=== PATIENT | male | born 1965 | race Caucasian/White ===

== ENCOUNTER 2016-12-07 10:04 | Inpatient (IN) | payer OTHER, MEDICAID ==
[2016-12-07] MEDS ORDERED: ceFAZolin 2 GM in Premix Bag 1 BAG IV ONE (10:33)
[2016-12-07] MEDS ORDERED: Sodium Chloride 0.9% 1,000 ML IV ONE (10:44)
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
[2016-12-07] MEDS ORDERED: Diphtheria/Tetanus Toxoids,Adult (Td) 0.5 ML SDV IM ONE (12:19)
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
[2016-12-07] MEDS: Lactated Ringers 1,000 ML IV SCH ×2 (12:35→23:58)
[2016-12-07] MEDS ORDERED: Lidocaine 2% 100 MG/5 ML Syringe IVPUSH ONE (14:00)
[2016-12-07] MEDS ORDERED: Dexamethasone 4 MG/ML 5 ML MDV IVPUSH ONE (14:00)
[2016-12-07] MEDS ORDERED: fentaNYL 100 MCG/2 ML SDV IV ONE (14:00)
[2016-12-07] MEDS ORDERED: Hetastarch in NS 500 ML IV ONE (14:00)
[2016-12-07] MEDS ORDERED: Rocuronium 100 MG/10 ML MDV IV ONE (14:00)
[2016-12-07] MEDS ORDERED: Propofol 200 MG/20 ML SDV IV ONE (14:00)
[2016-12-07] MEDS ORDERED: Ondansetron 4 MG/2 ML SDV IVPUSH ONE (14:00)
[2016-12-07] MEDS ORDERED: Midazolam 1 MG/ML 2 ML SDV IV ONE (14:00)
[2016-12-07] MEDS ORDERED: Phenylephrine 1% 10 MG/ML SDV IV ONE (14:00)
[2016-12-07] MEDS ORDERED: Neostigmine Methylsulfate 1 MG/ML 5 ML Syringe IV ONE (14:00)
[2016-12-07] MEDS ORDERED: HYDROmorphone 2 MG/ML SDV IV ONE (14:00)
[2016-12-07] MEDS ORDERED: ceFAZolin 1 GM Vial ONE (14:25)
[2016-12-07] MEDS ORDERED: Docusate Sodium 100 MG Cap PO PRN (15:08)
[2016-12-07] MEDS ORDERED: Lactated Ringers 1,000 ML IV SCH (15:15)
[2016-12-07] MEDS: Ketorolac 30 MG/ML SDV IVPUSH SCH ×2 (16:24→22:23)
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
[2016-12-07] MEDS ORDERED: LORazepam 2 MG/ML MDV IVPUSH PRN (18:09)
[2016-12-07] MEDS ORDERED: traZODone 100 MG Tab PO PRN (18:11)
[2016-12-07] MEDS: ceFAZolin 1 GM in Sodium Chloride 0.9% 50 ML IV SCH (19:50)
[2016-12-07] MEDS: traZODone 50 MG Tab PO PRN (23:07)
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
[2016-12-08] MEDS: Ketorolac 30 MG/ML SDV IVPUSH SCH ×4 (03:48→22:14)
[2016-12-08] MEDS: ceFAZolin 1 GM in Sodium Chloride 0.9% 50 ML IV SCH ×3 (03:52→19:34)
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
[2016-12-08] MEDS: Venlafaxine 150 MG Cap.ER PO SCH (08:24)
[2016-12-08] MEDS: Acetaminophen/HYDROcodone 325-5 MG Tab PO PRN (08:24)
[2016-12-08] MEDS: Lactated Ringers 1,000 ML IV SCH (08:27)
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
--- NOTE | 2016-12-08 12:24 | PN ---
DATE SEEN: 12/08/2016 PROBLEM: Compound fracture of the left forearm with irrigation and debridement. SUBJECTIVE: The patient is asymptomatic today. He denies any chest pain, shortness of breath, difficulty breathing or abdominal pain. OBJECTIVE: VITAL SIGNS: Vital signs are stable. GENERAL: He is alert and oriented. HEART: Normal sinus rhythm. LUNGS: Mild wheezing bilaterally and is chronic smoker. ABDOMEN: No pain, guarding, rigidity, or rebound. Good bowel sounds. EXTREMITIES: Examination of the left upper extremities reveals it to be hanging from an IV pole with the elbow bent approximately at 75 degrees and resting on the bed. The arm was supported by a stockinette from the IV pole. NEUROVASCULAR: Integrity is intact. ASSESSMENT: As above. Doing well. PLAN: We will take the patient back tomorrow with the expectations that the swelling will be down and we can close this laceration the rest of the way without causing any compartment syndrome. The patient also was updated on this program and wishes to proceed. Our expectations after surgery is to keep him hospitalized till Monday and then if everything looks fine, we will put him in a short-arm cast and discharge him. 1. Continue antibiotics. 2. Repeat hemoglobin and hematocrit. Initially it was 13+ and now it is only about 9. 3. Repeat basic metabolic profile. /[id number] SWETHA/PADMINI
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
[2016-12-09] MEDS: ceFAZolin 1 GM in Sodium Chloride 0.9% 50 ML IV SCH ×3 (04:55→20:49)
[2016-12-09] MEDS: Venlafaxine 150 MG Cap.ER PO SCH (09:16)
[2016-12-09] MEDS ORDERED: ePHEDrine 50 MG/ML SDV IV ONE (12:30)
[2016-12-09] MEDS ORDERED: Lactated Ringers 1,000 ML IV ONE (12:30)
[2016-12-09] MEDS ORDERED: Midazolam 1 MG/ML 2 ML SDV IV ONE (12:30)
[2016-12-09] MEDS ORDERED: Ondansetron 4 MG/2 ML SDV IVPUSH ONE (12:30)
[2016-12-09] MEDS ORDERED: Morphine 10 MG/ML Syringe IVPUSH ONE (12:30)
[2016-12-09] MEDS ORDERED: Propofol 200 MG/20 ML SDV IV ONE (12:30)
[2016-12-09] MEDS ORDERED: Lidocaine 2% 100 MG/5 ML Syringe IVPUSH ONE (12:30)
[2016-12-09] MEDS ORDERED: ceFAZolin 1 GM Vial ONE (13:04)
[2016-12-09] MEDS ORDERED: Docusate Sodium 100 MG Cap PO PRN (13:51)
[2016-12-09] MEDS ORDERED: Acetaminophen/HYDROcodone 325-5 MG Tab PO PRN (13:51)
[2016-12-09] MEDS ORDERED: Lactated Ringers 1,000 ML IV SCH (14:00)
[2016-12-09] MEDS: Ketorolac 30 MG/ML SDV IVPUSH SCH ×2 (14:44→21:08)
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
--- NOTE | 2016-12-09 19:56 | OR ---
DATE OF OPERATION: 12/09/2016 SURGEON: Ruben Perez MD PREOPERATIVE DIAGNOSIS: Compound fracture, left forearm with open laceration. POSTOPERATIVE DIAGNOSIS: Compound fracture, left forearm with open laceration. PROCEDURE PERFORMED: Irrigation, debridement, and inspection with laceration final closure. DESCRIPTION OF PROCEDURE: The patient was taken to the operating room, placed on the operating room table in supine position. A general anesthetic was then administered. The sugar-tong splint was then removed and dressings removed. Sterile ChloraPrep was then performed, and then sterile draping procedure carried out. No tourniquet was utilized during the procedure. The patient's tissue was viable. Minimal debridement was noted, just a little along the skin edges. The patient then had 2-0 nylon used for approximation of the skin, and then the superficial, then we brought the edges together very nicely once they had been opposed with 2-0 nylon. The patient had the area undermined both radially and ulnarly prior to closure so we could get less tension on the skin closure and thorough irrigation with approximately 500 mL of sterile normal saline with Ancef was utilized. Postoperatively, we applied OpSite, then used soft roll with re-application of the sugar tong splint and Johnny wraps. Postoperatively, the patient will be taken back to his room, will continue elevation and monitoring neurovascular integrity. Antibiotics IV will be continued for this gentleman. We will continue to observe for any sign of infection or compartment syndrome. This patient may be allowed to go home on Monday barring any complications. /[id number] SWETHA/PADMINI
[2016-12-09] MEDS: traZODone 50 MG Tab PO PRN (20:59)
[2016-12-10] MEDS: Ketorolac 30 MG/ML SDV IVPUSH SCH ×4 (02:59→19:46)
[2016-12-10] MEDS: ceFAZolin 1 GM in Sodium Chloride 0.9% 50 ML IV SCH ×3 (03:01→19:46)
[2016-12-10] MEDS: Multivitamin Tab PO SCH (08:31)
[2016-12-10] MEDS: Venlafaxine 150 MG Cap.ER PO SCH (08:32)
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
[2016-12-10] MEDS ORDERED: Sodium Chloride 0.9% 10 ML SDV FLUSH SCH (20:30)
[2016-12-11] MEDS: ceFAZolin 1 GM in Sodium Chloride 0.9% 50 ML IV SCH ×3 (03:38→20:15)
[2016-12-11] MEDS ORDERED: Sodium Chloride 0.9% 250 ML IV SCH (04:00)
[2016-12-11] MEDS: Acetaminophen/HYDROcodone 325-5 MG Tab PO PRN ×2 (07:54→20:24)
[2016-12-11] MEDS: Multivitamin Tab PO SCH (08:00)
[2016-12-11] MEDS: Venlafaxine 150 MG Cap.ER PO SCH (08:00)
[2016-12-12] MEDS: ceFAZolin 1 GM in Sodium Chloride 0.9% 50 ML IV SCH ×2 (03:34→12:29)
[2016-12-12] MEDS: Venlafaxine 150 MG Cap.ER PO SCH (08:28)
[2016-12-12] MEDS: Multivitamin Tab PO SCH (08:28)
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
--- NOTE | 2016-12-12 15:31 | PN ---
DATE SEEN: 12/12/2016 PROBLEM: Compound fracture, left forearm with a minimally displaced fracture of distal ulna. SUBJECTIVE: The patient is asymptomatic today. OBJECTIVE: Vital signs are stable. His neurovascular integrity is intact. His incision is healing well. There is no evidence of skin necrosis. There is no evidence of infection. PLAN: The patient will be discharged today with a return appointment to see Dr. Lua on and myself next Monday. If there is any sign of infection, redness, pain, or temperature, he is going to return to the emergency room. The patient has a new long-arm cast in place today and prescription for Keflex 500 p.o. q.i.d. is given, along with a prescription for hydrocodone 5/325 mg, #20. It should be noted he has tramadol 50 mg that he takes one every 6 hours at home. This patient did have what appeared to be about a 4 to 5 L blood loss, and his hemoglobin dropped initially about 5 units, after he was admitted, and then came up a little bit. It went from 13 to 8.8 and then up to 9.7, now today it is 8.9. This could be hemodilution from his recent surgery on , but we were also concerned about a traumatic hemolytic anemia. This problem was discussed with Dr. Lua today. We are going to do an iron level and transferrin. We will check his creatine kinase again and also do a peripheral blood smear. The patient is advised on discharge, as far as cast care and neurovascular precautions, and should he have any other problems, redness, pain, temperature, etc., he will get back to see us in the emergency room. I have return appointment for him next Monday, at which time we will window the cast and remove some of the sutures and inspect the incision. /[id number] SWETHA/PADMINI
[2016-12-12 16:05] VITALS: BP 120/77
--- NOTE | 2016-12-13 02:21 | DISCH ---
DISCHARGE DATE: 12/12/2016 PROBLEM: Compound fracture of left forearm. HISTORY OF THE HOSPITAL STAY: This patient was admitted because of the compound fracture of the left distal forearm. He had an open incision approximately 9 cm long and about 4 to 5 cm wide. He did have a minimally displaced distal ulnar fracture in good position and alignment. The patient was taken to the operating room, irrigated and debrided, and then closed partially. Two days later, he returned to the emergency room for a repeat inspection and definitive closure. At the time of discharge, his vital signs are stable. Incision is healing well. He is resting comfortably in new long-arm cast. The patient has been given precautions for cast care as well as neurovascular precautions. If any sign of infection, redness, pain or temperature, he will return to see us immediately. COMPLICATIONS: None. DIET: Regular. CONSULTATIONS: 1. Dr. Ruben Webster. 2. Dr. Lua. The patient did have a hemoglobin of 13.8 approximately and then dropped down to about 8.7, 24 hours later. The patient's hemoglobin then went up and went down again at about to his approximately 8.8. This was discussed with Dr. Lua and we felt that some of his low hemoglobin was because of dilution. He also may have some underlying conditions that we are going to rule out as far as traumatic hemolytic anemia. At no time did he demonstrate any chest pain, shortness of breath, abdominal pain, or back pain. The surgical blood loss was approximately 20 mL for both surgeries total. RETURN APPOINTMENT: 1. The patient will return to see Dr. Lua next . 2. The patient will return to see me in 1 week for doing of the cast, dressing change, and possible removal of some sutures. MEDICATIONS: 1. Resume preadmission medication, usual dosage and frequency. 2. Hydrocodone 5/325, #20. The patient has tramadol at home, so I felt that no more than 20 was needed. Complications; as stated previously was the postop decrease in hemoglobin, which we are currently evaluating with a repeat iron, repeat serum creatine kinase, peripheral blood smear, vitamin B12 level, transferrin, and iron level. Activities of daily living: The patient should refrain from doing any driving and will not do any heavy lifting, pushing, or pulling. Showering precautions and rules are explained to the patient. /[id number] AMMY
[2016-12-13 20:34] LABS: UNSATURATED IRON BIND CAPACITY 180 ug/dL (112-347)
--- NOTE | 2016-12-29 08:36 | PN ---
DATE OF SERVICE: 12/11/2016 Please note that on 12/11/2016, I did not physically see Mr. Yg French. /[id number] DERRICK/PADMINI
== END 2016-12-12 16:20 | disposition home or self-care (01) | DRG 579 ==
LOC: FB.ED 10:04 → FB.SDS 11:20 → FB.MS 15:08
PROVIDERS: ADMIT Orthopaedic Surgery; ATTEND Orthopaedic Surgery
PROC: 0JDH0ZZ Extraction of Left Lower Arm Subcutaneous Tissue and Fascia, Open Approach (ICD-10-PCS; principal; 2016-12-07)
PROC: 0KQB0ZZ Repair Left Lower Arm and Wrist Muscle, Open Approach (ICD-10-PCS; 2016-12-07)
PROC: 0JQH0ZZ Repair Left Lower Arm Subcutaneous Tissue and Fascia, Open Approach (ICD-10-PCS; 2016-12-07)
PROC: 2W3DX1Z Immobilization of Left Lower Arm using Splint (ICD-10-PCS; 2016-12-07)
PROC: 0JDH0ZZ Extraction of Left Lower Arm Subcutaneous Tissue and Fascia, Open Approach (ICD-10-PCS; 2016-12-09)
PROC: 0XQF0ZZ Repair Left Lower Arm, Open Approach (ICD-10-PCS; 2016-12-09)
DX: S51.812A Laceration without foreign body of left forearm, initial encounter (principal); S52.25 Comminuted fracture of shaft of ulna; V58.0XXA Driver of pick-up truck or van injured in noncollision transport accident in nontraffic accident, initial encounter; T79.6XXA Traumatic ischemia of muscle, initial encounter; T68.XXXA Hypothermia, initial encounter; D50.9 Iron deficiency anemia, unspecified; F32.9 Major depressive disorder, single episode, unspecified; F41.9 Anxiety disorder, unspecified; F41.0 Panic disorder [episodic paroxysmal anxiety]; M54.9 Dorsalgia, unspecified; G89.29 Other chronic pain; F17.210 Nicotine dependence, cigarettes, uncomplicated; Z23 Encounter for immunization; Z91.5 Personal history of self-harm; F10.21 Alcohol dependence, in remission; Z87.898 Personal history of other specified conditions; Y90.0 Blood alcohol level of less than 20 mg/100 ml
CPT/HCPCS: 36415; 70450; 71020; 72125; 73060-LT; 73090-LT; 73120-LT; 80048; 80053; 80076; 80305; 81001; 82270; 82550; 82607; 82728; 83540; 83550; 84484; 85014; 85018; 85025; 85045; 85384; 85610; 85730; 88104; 90714; 94150; 99285; A4217; A9270-GY; G0480; J0690; J1100; J1170; J1885; J2060; J2250; J2270; J2370; J2405; J2704; J3010; J7040; J7050; J7120

== ENCOUNTER 2017-02-20 22:11 | Emergency (ER) | payer MEDICAID, OTHER ==
[2017-02-20] MEDS ORDERED: LORazepam 2 MG/ML MDV IM ONE (22:16)
[2017-02-20] MEDS ORDERED: Thiamine 100 MG Tab PO ONE (22:46)
[2017-02-20] MEDS ORDERED: Sodium Chloride 0.9% 1,000 ML IV ONE (22:58)
[2017-02-20] MEDS ORDERED: Folic Acid 1 MG Tab PO ONE (22:58)
[2017-02-20] MEDS ORDERED: Albuterol/Ipratropium 3.0-0.5 MG/3 ML Neb Soln NEB ONE (22:59)
[2017-02-20 23:53] LABS: ACETAMINOPHEN < 10 ug/mL (10-30)
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
[2017-02-21] MEDS ORDERED: Sodium Chloride 0.9% 1,000 ML IV ONE (00:38)
[2017-02-21] MEDS ORDERED: diphenhydrAMINE 50 MG/ML SDV IVPUSH ONE (01:08)
[2017-02-21] MEDS ORDERED: LORazepam 2 MG/ML MDV IVPUSH ONE (03:05)
[2017-02-21 07:08] VITALS: BP 198/98
== END 2017-02-21 07:13 ==
LOC: FB.ED 22:11
DX: R45.851 Suicidal ideations (principal); F41.9 Anxiety disorder, unspecified; F17.210 Nicotine dependence, cigarettes, uncomplicated; Z79.899 Other long term (current) drug therapy
CPT/HCPCS: 36415; 80048; 80076; 80305; 81001; 84443; 85025; 94664; 96361; 96374; 96375; 99285; A9270; G0480; J1200; J2060; J7040; J7620

== ENCOUNTER 2017-08-02 10:59 | Emergency (ER) | payer BC, MEDICAID ==
[2017-08-02 11:14] VITALS: BP 129/79
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
== END 2017-08-02 11:50 ==
LOC: FB.ED 10:59
DX: S00.81XA Abrasion of other part of head, initial encounter (principal); F10.129 Alcohol abuse with intoxication, unspecified; Z91.19 Patient's noncompliance with other medical treatment and regimen; F17.210 Nicotine dependence, cigarettes, uncomplicated; Z79.899 Other long term (current) drug therapy; X58.XXXA Exposure to other specified factors, initial encounter
CPT/HCPCS: 99283

== ENCOUNTER 2017-08-07 00:19 | Emergency (ER) | payer BC, MEDICAID ==
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
[2017-08-07 07:08] VITALS: BP 129/81
== END 2017-08-07 00:50 ==
LOC: FB.ED 00:19
DX: F10.129 Alcohol abuse with intoxication, unspecified (principal); F17.210 Nicotine dependence, cigarettes, uncomplicated; F41.0 Panic disorder [episodic paroxysmal anxiety]; F32.9 Major depressive disorder, single episode, unspecified; Z79.899 Other long term (current) drug therapy
CPT/HCPCS: 99283